=== PATIENT | female | born 1945 | race Two or more races ===

== ENCOUNTER 2016-12-25 12:21 | Emergency (ER) | payer MEDICARE, OTHER ==
[~2016-12-25] VITALS: Ht 165.1 cm; Wt 65.8 kg
[~2016-12-25 12:21] MED LIST: ALBU2.5V13 IH; ATROPINE SULFATE 1 MG/10 ML DISP.SYRIN IV ONE; BISA10SU8 RC; CRAN3875 PO; CRAN450T3 PO; DOCU-25 PO; EPINEPHRINE (1:10,000) SYRINGE 1 MG/10 ML DISP.SYRIN IVP ONE; GUAI600T PO; HYDR-548 PO; IPRA0.2S9 IH; LACT10SO7 PO; MAGN400O6 PO; METF500T4 PO; METO25TA6 PO; MIRT15TA7 PO; MULT-59 PO; NA P133E RC; SENN8.6T60 PO; SIMV40TA5 PO; SODIUM BICARBONATE SYR 50 MEQ/50 ML DISP.SYRIN IV ONE; SPIR25TA PO; VENL75TA4 PO; WARF3TAB29 PO; ZOLP5TAB2 PO
--- NOTE | 2016-12-25 12:21 | NUR ---
BIB [facility] IN CARDIAC ARREST WITH BVM VENTILATION, 20 MIN DOWN TIME. X1 SHOCK GIVEN IN FIELD. PT PLACED TO BED 2. MD AT BEDSIDE. RT AT BEDSIDE. [employer]ARM[employer] AT BEDSIDE. RN AND FILLING HAND AT BEDSIDE. FUNERAL LOCATION MANAGER AT BEDSIDE. CODE INITIATED WITH DR ALARCON LEADING THE CODE.
--- NOTE | 2016-12-25 12:39 | NUR ---
PT PRONOUNCED BY DR ALARCON. SEE RECORD OF CHART AND CODE SHEET
--- NOTE | 2016-12-25 13:05 | NUR ---
DR ALARCON SPEAKING WITH PATIENT'S SON DPOA AT THIS TIME.
--- NOTE | 2016-12-25 13:10 | NUR ---
[facility] CALLED BY SHELLY RYAN RN
--- NOTE | 2016-12-25 13:10 | NUR ---
DR VILLELA PAGED
--- NOTE | 2016-12-25 13:10 | NUR ---
paged Dr. Pena
[2016-12-25 14:04] VITALS: BP 0/0
== END 2016-12-25 14:06 ==
LOC: ER 12:24
DX: I46.9 Cardiac arrest, cause unspecified (principal); I10 Essential (primary) hypertension; E11.9 Type 2 diabetes mellitus without complications; E78.00 Pure hypercholesterolemia, unspecified; Z95.5 Presence of coronary angioplasty implant and graft; Z79.01 Long term (current) use of anticoagulants; D64.9 Anemia, unspecified; F29 Unspecified psychosis not due to a substance or known physiological condition; Z91.018 Allergy to other foods; Z88.8 Allergy status to other drugs, medicaments and biological substances
CPT/HCPCS: 31500; 92950; 99285; A4606; J0171; J0461; J3490